=== PATIENT | male | born 1985 | race Caucasian/White ===

== ENCOUNTER → 2023-05-15 | Emergency (ER) | payer OTHER ==
[~2023-05-15] VITALS: Ht 170.2 cm; Wt 89.8 kg
[~2023-05-15] MED LIST: AMLODIPINE-BEN1 EAC3 PO; VENLAFAXINE HC150 MG PO
== END | disposition left against medical advice (07) ==
LOC: ER 19:54
DX: Z53.21 Procedure and treatment not carried out due to patient leaving prior to being seen by health care provider (principal)